=== PATIENT | female | born 1985 | race Two or more races ===

== ENCOUNTER 2018-01-10 13:58 | Day surgery (SDC) | payer BC ==
[~2018-01-10] VITALS: Ht 162.6 cm; Wt 57.7 kg
[~2018-01-10 13:58] MED LIST: MULT-308 PO; NORG1TAB6 PO
[2018-01-10] MEDS ORDERED: FENTANYL PF 250 MCG/5ML ONE (14:23)
[2018-01-10] MEDS ORDERED: MIDAZOLAM 1 MG/ML, 2ML ONE (14:23)
[2018-01-10] MEDS ORDERED: CEFAZOLIN 1,000 MG ONE ×2 (14:25)
[2018-01-10] MEDS ORDERED: PROPOFOL 10 MG/ML, 20ML ONE (14:25)
[2018-01-10] MEDS ORDERED: LIDOCAINE-MPF 2% ,5ML ONE (14:25)
[2018-01-10] MEDS ORDERED: SODIUM CHLORIDE 0.9% PF 10ML ONE (14:25)
[2018-01-10] MEDS ORDERED: LACTATED RINGERS 1,000 ML IV SCH (15:17)
[2018-01-10 15:18] VITALS: BP 125/74
[2018-01-10] MEDS ORDERED: OxyconTIN ER 20 MG TAB.ER PO ONE (15:30)
[2018-01-10] MEDS ORDERED: ACETAMINOPHEN 500 MG TABLET PO ONE (15:30)
[2018-01-10] MEDS ORDERED: GABAPENTIN 300 MG CAPSULE PO ONE (15:30)
[2018-01-10 15:36] LABS: HCG UR SG 1.025 (1.003-1.030)
[2018-01-10] MEDS ORDERED: ONDANSETRON 2MG/ML, 2ML ONE (15:36)
[2018-01-10] MEDS ORDERED: DEXAMETHASONE 4 MG/ML, 1ML ONE (15:36)
[2018-01-10] MEDS ORDERED: KETOROLAC 30 MG/1 ML ONE (15:36)
[2018-01-10] MEDS ORDERED: AMOXICILLIN PO (15:37)
[2018-01-10 15:40] VITALS: BP 125/74
[2018-01-10] MEDS ORDERED: hydrALAzine 20 MG/ML, 1ML IV PRN (16:30)
[2018-01-10] MEDS ORDERED: HYDROmorphone 1 MG/ML, 1ML IV PRN (16:30)
[2018-01-10] MEDS ORDERED: LABETALOL 5MG/ML, 20ML IV PRN (16:30)
[2018-01-10] MEDS ORDERED: ONDANSETRON 2MG/ML, 2ML IVPush PRN (16:30)
[2018-01-10] MEDS ORDERED: MEPERIDINE/PF 25MG/0.5ML IVPush PRN (16:30)
[2018-01-10] MEDS ORDERED: FENTANYL PF 100 MCG/2ML IV PRN (16:30)
[2018-01-10] MEDS ORDERED: PROMETHAZINE 12.5 MG SUPP PR PRN (16:30)
[2018-01-10] MEDS ORDERED: OXYcodone 5 MG/5 ML ORAL.SOL UDC PO PRN (16:30)
[2018-01-10] MEDS ORDERED: PROMETHAZINE 25 MG/ML, 1ML IV PRN (16:30)
[2018-01-10] MEDS ORDERED: OXYcodone IR 5MG TABLET ONE (17:14)
[2018-01-10] MEDS ORDERED: PROMETHAZINE 25 MG/ML, 1ML ONE (19:19)
[2018-01-10] MEDS ORDERED: SCOPOLAMINE PATCH, 1.5MG PATCH.TD72 TD ONE (19:30)
[2018-01-10] MEDS ORDERED: PROMETHAZINE 25 MG/ML, 1ML IM PRN (19:30)
[2018-01-10] MEDS ORDERED: IBUPROFEN 600 MG TABLET PO PRN (20:00)
[2018-01-10] MEDS ORDERED: HYDROcodone/APAP 5/325 TABLET PO PRN (20:00)
== END 2018-01-10 21:20 | disposition home or self-care (01) ==
LOC: SDC 13:58 → 4NOR 19:52 → SDC 21:20
PROVIDERS: ATTEND Obstetrics & Gynecology
DX: A63.0 Anogenital (venereal) warts (principal)
CPT/HCPCS: 57061; 81025; J0690; J1100; J1885; J2250; J2405; J2550; J2704; J3010; J3490; J7120

== ENCOUNTER 2020-08-26 17:05 | Emergency (ER) | payer BC, OTHER ==
[~2020-08-26] VITALS: Ht 162.6 cm; Wt 69.5 kg
[~2020-08-26 17:05] MED LIST changes: +AMOXICILLIN PO
[2020-08-26 18:04] VITALS: BP 131/56
[2020-08-26] MEDS ORDERED: FLUORESCEIN OPHTHALMIC 1 MG STRIP EACHEYE ONE (18:30)
[2020-08-26] MEDS ORDERED: PROPARACAINE OPHTH 0.5%, 15ML LEFTEYE ONE (18:30)
[2020-08-26] MEDS ORDERED: PROPARACAINE OPHTH 0.5%, 15ML ONE (20:08)
[2020-08-26] MEDS ORDERED: FLUORESCEIN OPHTHALMIC 1 MG STRIP ONE (20:08)
--- NOTE | 2020-08-26 20:17 | NUR ---
PT TO ED WITH LEFT EYE PAIN, REPORTS ABRASION OF EYE. ERP IN ROOM TO RERE PT. MEDICATED PER MAR BY .
[2020-08-26] MEDS ORDERED: ERYTHROMYCIN OPHTH 0.5%, 1GM LEFTEYE ONE (20:30)
== END 2020-08-26 19:31 ==
LOC: ED 18:23
DX: S05.02XA Injury of conjunctiva and corneal abrasion without foreign body, left eye, initial encounter (principal); J45.909 Unspecified asthma, uncomplicated; X58.XXXA Exposure to other specified factors, initial encounter; Y93.89 Activity, other specified; Y92.89 Other specified places as the place of occurrence of the external cause; Y99.8 Other external cause status
CPT/HCPCS: 99283